=== PATIENT | male | born 1985 | race Caucasian/White ===

== ENCOUNTER 2020-08-23 08:09 | Inpatient (IN) | payer OTHER ==
[2020-08-23] VITALS (18 sets, daily range): BP systolic 104–134; BP diastolic 62–81
[~2020-08-23] VITALS: Ht 175.3 cm; Wt 56.2 kg
[~2020-08-23 08:09] MED LIST: KEFLEX500 MG PO; NOHOMEMEDICATIONS; ULTRAM 50MG TAB50 MG PO
--- NOTE | 2020-08-23 08:30 | NUR ---
PT IS LINE OF SIGHT PER DR. LOPEZ
[2020-08-23 08:45] LABS: ABSOLUTE MONOCYTES 0.3 thou/uL (0.0-1.2); ABSOLUTE NEUTROPHILS 4.7 thou/uL (1.6-8.1); BASOPHILS 0.4 %; EOSINOPHILS 0.2 %; HEMATOCRIT 35.1 % (42.0-52.0); HEMOGLOBIN 11.9 gm/dL (14.0-18.0); LYMPHOCYTES 16.6 %; MCH 32.6 pg (26.0-34.0); MCHC 33.8 g/dL (28.0-37.0); MCV 96.6 fL (80.0-100.0); MONOCYTES 5.3 %; MPV 8.4 fl. (7.2-11.1); NUCLEATED RBCS 0 /100WBC; PLATELET COUNT* 75 thou/uL (150-400); POLYS 77.5 %; RBC 3.63 mil/uL (4.50-6.00); RDW-CV 14.9 % (10.5-14.5); WBC 6.1 thou/uL (4.0-11.0)
[2020-08-23 08:52] LABS: CALCIUM 9.1 mg/dL (8.5-10.1); CREATININE 1.2 mg/dL (0.6-1.3)
[2020-08-23 08:52] LABS: URINE BILIRUBIN NEGATIVE (Negative); URINE BLOOD 1+ (Negative); URINE CLARITY CLEAR; URINE COLOR YELLOW; URINE GLUCOSE-RANDOM NEGATIVE (Negative); URINE KETONES NEGATIVE (Negative); URINE LEUKOCYTES-REFLEX NEGATIVE (Negative); URINE NITRITE-REFLEX NEGATIVE (Negative); URINE PROTEIN TRACE (Negative); URINE UROBILINOGEN 0.2 E.U./dl (0.2-1.0)
[2020-08-23 08:57] LABS: ALBUMIN 4.7 g/dL (3.4-5.0); TOTAL BILIRUBIN 2.1 mg/dL (<0.1-1.0); TOTAL PROTEIN 7.9 g/dL (6.4-8.2)
[2020-08-23 08:58] LABS: POTASSIUM 2.9 mmol/L (3.5-5.1)
[2020-08-23 09:02] LABS: AMP/METHAMP Negative (Negative); BARBITURATES Negative (Negative); BENZODIAZEPINES Negative (Negative); CASTS None Seen /LPF (None Seen); COCAINE Negative (Negative); CRYSTALS None Seen /LPF (None Seen); METHADONE Negative (Negative); MUCUS None Seen strn/LPF (None Seen); OPIATES Negative (Negative); PCP Negative (Negative); SQUAMOUS NONE SEEN /LPF (0-3); THC Negative (Negative); URINE RBC 0-2 Rare /HPF (0-2); URINE WBC-REFLEX None Seen /HPF (0-5)
[2020-08-23 09:14] LABS: ACETAMINOPHEN < 2 ug/mL (10-30); ALCOHOL < 10 mg/dL (<10); SALICYLATE < 2.8 mg/dL (2.8-20.0)
--- NOTE | 2020-08-23 09:31 | NUR ---
PT PROVIDED WITH BREAKFAST TRAY
--- NOTE | 2020-08-23 11:39 | NUR ---
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
--- NOTE | 2020-08-23 12:29 | NUR ---
PT GIVEN LUNCH.
--- NOTE | 2020-08-23 15:43 | NUR ---
PT TAKEN OFF LINE OT SIGHT DUE TO PT HAVING MORE AUDITORY AND VISUAL HALLUCINATIONS. PT IS NOW 1:1
--- NOTE | 2020-08-23 17:48 | NUR ---
PT PROVIDED WITH BREAKFAST TRAY
--- NOTE | 2020-08-23 17:48 | NUR ---
PT GIVEN DINNER TRAY
--- NOTE | 2020-08-23 18:56 | NUR ---
PT BECAME VERY AGGIATED AND DISORIENTED TO REALITY DESPITE MEDICATIONS GIVEN. UNABLE TO REDIRECT PT, PT UNSTEADY GAIT. PT PLACED IN RESTRAINTS FOR SAFETY.
--- NOTE | 2020-08-23 19:40 | NUR ---
BELONGINGS GIVEN TO MALLIKA TO GIVE TO DENISE HAMMONDS IN ICU
--- NOTE | 2020-08-23 22:22 | NUR ---
PATIENT TO UNIT AT 1945. UNABLE TO DO COMPLETE ADMISSION HISTORY DUE TO PATIENT BEING CONFUSED AND DISORIENTED X4. CIWA PROTOCOL INITIATED. PATIENT WAS TAKEN OUT OF 4 POINT RESTRAINTS AFTER ARRIVAL TO UNIT. NO LONGER EXHIBITING BEHAVIORS REQUIRING RESTRAINTS. 1:[address] VSS
[2020-08-24] VITALS (28 sets, daily range): BP systolic 58–114; BP diastolic 32–81
[2020-08-24 04:45] LABS: ABSOLUTE EOSINOPHILS 0.1 thou/uL (0.0-0.7); ABSOLUTE LYMPHOCYTES 1.1 thou/uL (0.8-5.3); ABSOLUTE MONOCYTES 0.3 thou/uL (0.0-1.2); ABSOLUTE NEUTROPHILS 1.8 thou/uL (1.6-8.1); BASOPHILS 0.3 %; EOSINOPHILS 1.7 %; HEMATOCRIT 28.2 % (42.0-52.0); LYMPHOCYTES 34.1 %; MCH 33.5 pg (26.0-34.0); MCHC 34.2 g/dL (28.0-37.0); MPV 8.9 fl. (7.2-11.1); NUCLEATED RBCS 0 /100WBC; PLATELET COUNT* 78 thou/uL (150-400); POLYS 54.9 %; RBC 2.88 mil/uL (4.50-6.00); WBC 3.3 thou/uL (4.0-11.0)
[2020-08-24 04:51] LABS: HEMOGLOBIN 9.6 gm/dL (14.0-18.0)
[2020-08-24 04:54] LABS: PROTIME 10.7 Seconds (9.20-11.50)
[2020-08-24 05:02] LABS: ALBUMIN 3.3 g/dL (3.4-5.0); CALCIUM 8.7 mg/dL (8.5-10.1); POTASSIUM 3.5 mmol/L (3.5-5.1); TOTAL BILIRUBIN 1.3 mg/dL (<0.1-1.0)
--- NOTE | 2020-08-24 10:29 | NUR ---
this chief underwriter assumed care of pt at 0700 pt remains 1:1 observation. pt frida is 15 see charting extremely agitated restless pulling at this climbing out of bed and making verbal threats that he will kill everyone, throw the chair and smash everything, he will freak out like he did last night, pt also states his mom is an oncology nurse who kills her pts, he believes we are [place] and is attemtping to speak sami, pt is having severe visual halluications seeing multiple people and things, his mom, a brett named wilbert, a little girl and dog stated he saw a grill outside the door with smoke coming out this chief underwriter paged dr siddiqui received an order for haldol when continue to redirect reorient and remain 1:1
--- NOTE | 2020-08-24 14:07 | NUR ---
pt is very combative and agitated verbally threatening tried puncging this fha underwriter in the face secruity called dr chen corona for restraint order and precedex gtt ciwa is 20 pt is disorienated confused severe hallucinations will continue to monitor closely
--- NOTE | 2020-08-24 14:59 | NUR ---
ICU ROUNDS: Pt admitted with ETOH w/drawl. Pt was combative towards nurse when CM went to assess, security called, CM to attempt to assess tomorrow. Med Assist following to determine if Pt is DELIA eligible.
--- NOTE | 2020-08-24 21:35 | NUR ---
PATIENT AWAKE AT 2100. PATIENT IS DISORIENTED AND CONFUSED. PATIENT PARANOID AND CAUTIOUS OF NURSING STAFF. STATES "YOU'RE THOSE MOTHER FUCKERS THAT KEEP CATCHING ME." REPEATEDELY ATTEMPTING TO GET OUT OF RESTRAINTS. PATIENT BRIEFLY CALMED DOWN TO TAKE MEDICATION AND EAT DINNER. REPEATEDLY ATTEMPTS TO PULL CATHETER OUT. CIWA SCORED AT 28. ATIVAN ADMINISTERED PER ORDERS.
[2020-08-25] VITALS (20 sets, daily range): BP systolic 75–112; BP diastolic 39–85
[2020-08-25 06:34] LABS: CALCIUM 8.7 mg/dL (8.5-10.1); CREATININE 0.7 mg/dL (0.6-1.3); MAGNESIUM 1.4 mg/dL (1.8-2.4); PHOSPHORUS* 1.3 mg/dL (2.5-4.9); POTASSIUM 3.1 mmol/L (3.5-5.1)
--- NOTE | 2020-08-25 07:22 | NUR ---
ASSESSMENTS CHARTED. PATIENT REMAINS CONFUSED AND DISORIENTED THIS SHIFT. PRECEDEX AT 0.3. REMAINS IN RESTRAINTS. PATIENT IS IMPULSIVE AND ATTEMPTS TO PULL CATHETER REPEATEDELY. PATIENT'S CARDIAC RHYTHM SHOWED SUBLTE ST ELEVATION CHANGES THIS AM. EKG PERFORMED CONFIRMING CHANGES. RESULTS CALLED TO DR. GONZALEZ AND ORDERS RECIEVED. PATIENT ASYMPTOMATIC, NO COMPLAINTS OF CHEST PAIN. ORDERS TO DRAW TROPONIN LEVELS AND MONITOR PATIENT.
--- NOTE | 2020-08-25 10:00 | NUR ---
Nutrition: screen for low BMI. No wt hx. Pt admit with ETOH withdrawl, severe hallucinations; pt was combative with staff requiring restraints. Nsg notes pt still confused and disoriented this am. Nsg noted pt did calm down enough to eat dinner last pm. Albumin mildly low at 3.3, Phos 1.3, K 3.1. vitamins, thiamine and other meds reviewed. Rec offer supplements/snacks for meal intake 50% or less. RD to reassess 08/30/20.
--- NOTE | 2020-08-25 10:02 | EKG ---
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 Chief: RICH : 1985 Requested By: Roberto Kathleen Order Number: [id number] Roxy MD: Rajiv Alvarenga Measurements Intervals [place] Rate: 54 P: 37 NC: 156 QRS: 77 QRSD: 107 T: 61 QT: 453 QTc: 430 Interpretive Statements Sinus bradycardia Probable left ventricular hypertrophy ST elev, probable normal early repol pattern No previous ECG available for comparison Electronically Signed On 08-25-2020 10:01:57 CANTEEN MANAGER by Rajiv Alvarenga [email or web address] <ELECTRONICALLY SIGNED> By: Rajiv Alvarenga MD, [facility] 08/25/20 1001 0318 0318 Rajiv Alvarenga MD, [facility] /EPI
--- NOTE | 2020-08-25 10:02 | EKG ---
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 : 1985 Requested By: Renu Dash Order Number: [id number] MD: Rajiv Alvarenga Measurements Intervals [place] Rate: 64 P: 45 NE: 168 QRS: 72 QRSD: 114 T: 48 QT: 456 QTc: 471 Interpretive Statements Sinus rhythm Borderline intraventricular conduction delay ST elev, probable normal early repol pattern Compared to ECG 08/25/2020 03:18:48 No significant changes Electronically Signed On 08-25-2020 10:02:14 UPHOLSTERY DEPARTMENT SUPERVISOR by Rajiv Alvarenga [email or web address] <ELECTRONICALLY SIGNED> By: Rajiv Alvarenga MD, FACC 08/25/20 1002 0428 0428 Rajiv Alvarenga MD, [facility] /EPI
--- NOTE | 2020-08-25 15:37 | NUR ---
ICU rounds: CIWA up. ICU status. Treating for etoh w/drawals vs. general psychosis. Off precedex
[2020-08-26 00:06] VITALS: BP 93/62
[2020-08-26 04:25] VITALS: BP 92/61
--- NOTE | 2020-08-26 05:26 | NUR ---
ASSUMED PATIENT CARE AT 1900. ASSESSMENTS COMPLETED CHARTED. CARDIAC MONITORING IN PLACE. HOURLY ROUNDING IN PLACE FOR PATIENT SAFETY. FALL PRECAUTIONS IN PLACE FOR PATIENT SAFETY. BED LOCKED AND IN LOWEST POSITION. BED ALARM ON. CLWR.
[2020-08-26 07:07] LABS: HEMATOCRIT 30.3 % (42.0-52.0); HEMOGLOBIN 10.4 gm/dL (14.0-18.0); MCH 33.7 pg (26.0-34.0); MCHC 34.4 g/dL (28.0-37.0); MCV 97.9 fL (80.0-100.0); MPV 8.2 fl. (7.2-11.1); RBC 3.09 mil/uL (4.50-6.00); RDW-CV 14.8 % (10.5-14.5); WBC 4.2 thou/uL (4.0-11.0)
[2020-08-26 07:20] LABS: ALBUMIN 3.4 g/dL (3.4-5.0); CALCIUM 9.4 mg/dL (8.5-10.1); CREATININE 0.9 mg/dL (0.6-1.3); MAGNESIUM 1.2 mg/dL (1.8-2.4); PHOSPHORUS* 2.5 mg/dL (2.5-4.9); POTASSIUM 4.3 mmol/L (3.5-5.1); TOTAL BILIRUBIN 0.6 mg/dL (<0.1-1.0); TOTAL PROTEIN 6.5 g/dL (6.4-8.2)
[2020-08-26 09:36] VITALS: BP 100/60
[2020-08-26 09:53] VITALS: BP 92/61
--- NOTE | 2020-08-26 13:03 | NUR ---
PATIENT REMAINS A&O X 4, PLEASANT AND COOPERATIVE WITH CARES. DENIES PAIN OR SHORTNESS OF AIR. CIWA REMAINS LOW WITH LAST SCORE OF A 4. GOOD APPITITE. MOTHER AT BEDSIDE THIS AM. NO COMPLAINTS AT THIS TIME. MAY DISCHARGE HOME AWAITING CONSULT FROM PSYCH. NO FUTHER CONCERNS AT THIS TIME. WILL CONTINUE TO MONITOR AND CARE PER PLAN OF CARE.
--- NOTE | 2020-08-26 14:05 | NUR ---
CM SPOKE TO THE PT TO DISCUSS D/C PLANNING AND TO PROVIDE ETOH RESOURCES. CM PROVIDED ETOH RESOURCES AND CONTACT INFO/PAMPHLET FOR [facility]. PT ACCEPTS INFO AND PLAN TO CONTACT [facility] AT D/C. CM WILL REMAIN AVAILABLE TO ASSIST AND FOLLOW NEEDED.
[2020-08-27 10:49] VITALS: BP 92/61
== END 2020-08-26 15:20 | disposition home or self-care (01) | DRG 896 ==
LOC: M.ERS 08:09 → M.TBA-ER 18:49 → M.ICU 19:41
PROVIDERS: Family Medicine; Internal Medicine; ADMIT Internal Medicine; ATTEND Internal Medicine
DX: F10.231 Alcohol dependence with withdrawal delirium (principal); G92 Toxic encephalopathy; Y90.9 Presence of alcohol in blood, level not specified; E87.6 Hypokalemia; F29 Unspecified psychosis not due to a substance or known physiological condition; D64.9 Anemia, unspecified; K70.10 Alcoholic hepatitis without ascites; E86.0 Dehydration; Z20.822 Contact with and (suspected) exposure to COVID-19; Z79.899 Other long term (current) drug therapy

== ENCOUNTER 2021-04-12 22:12 | Inpatient (IN) | payer OTHER ==
[~2021-04-12] VITALS: Ht 177.8 cm; Wt 57.9 kg
[2021-04-12 22:26] VITALS: BP 121/86
[2021-04-12 22:37] LABS: ABSOLUTE LYMPHOCYTES 1.4 thou/uL (0.8-5.3); ABSOLUTE MONOCYTES 0.6 thou/uL (0.0-1.2); ABSOLUTE NEUTROPHILS 4.6 thou/uL (1.6-8.1); BASOPHILS 0.3 %; EOSINOPHILS 0.1 %; HEMATOCRIT 38.5 % (42.0-52.0); HEMOGLOBIN 13.4 gm/dL (14.0-18.0); LYMPHOCYTES 20.6 %; MCH 32.7 pg (26.0-34.0); MCHC 34.7 g/dL (28.0-37.0); MCV 94.1 fL (80.0-100.0); MONOCYTES 9.4 %; MPV 8.2 fl. (7.2-11.1); NUCLEATED RBCS 0 /100WBC; PLATELET COUNT* 105 thou/uL (150-400); POLYS 69.6 %; RBC 4.09 mil/uL (4.50-6.00); RDW-CV 14.8 % (10.5-14.5); WBC 6.6 thou/uL (4.0-11.0)
[2021-04-12 22:44] LABS: CALCIUM 10.8 mg/dL (8.5-10.1); CREATININE 2.4 mg/dL (0.6-1.3)
[2021-04-12 22:45] LABS: POTASSIUM 2.7 mmol/L (3.5-5.1)
[2021-04-12 22:48] LABS: ALBUMIN 5.2 g/dL (3.4-5.0); MAGNESIUM 2.1 mg/dL (1.8-2.4); TOTAL BILIRUBIN 1.4 mg/dL (<0.1-1.0); TOTAL PROTEIN 8.3 g/dL (6.4-8.2)
[2021-04-12 22:52] LABS: ACETAMINOPHEN < 2 ug/mL (10-30); SALICYLATE < 2.8 mg/dL (2.8-20.0)
[2021-04-13] VITALS (17 sets, daily range): BP systolic 96–146; BP diastolic 61–103
[2021-04-14] VITALS (21 sets, daily range): BP systolic 104–158; BP diastolic 40–90
[2021-04-14 04:29] LABS: HEMATOCRIT 30.2 % (42.0-52.0); MCH 32.4 pg (26.0-34.0); MCHC 33.8 g/dL (28.0-37.0); MCV 95.9 fL (80.0-100.0); MPV 7.1 fl. (7.2-11.1); RBC 3.15 mil/uL (4.50-6.00); RDW-CV 14.7 % (10.5-14.5); WBC 2.3 thou/uL (4.0-11.0)
[2021-04-14 04:41] LABS: POTASSIUM 3.2 mmol/L (3.5-5.1)
[2021-04-14 04:44] LABS: CALCIUM 8.6 mg/dL (8.5-10.1); CREATININE 0.8 mg/dL (0.6-1.3)
[2021-04-14 04:48] LABS: HEMOGLOBIN 10.2 gm/dL (14.0-18.0)
--- NOTE | 2021-04-14 12:47 | EKG ---
[place] [address] ELECTROCARDIOGRAM REPORT Name: HELEN JUAREZ Room: [address] ADM IN M.R.#: [id number] Admission: 04/12/21 Attend Phys: Renu Dash, Discharge: Date of : 81 Date of Service: 04/12/21 2301 Report #: [id number] THIS REPORT FOR: //name// [facility] ED Test Date: 2021-04-12 Test Time: 23:01:53 Pat Name: HELEN GILLILANDEMMA Department: Room: [address] Gender: M Is Manager: TB : 1985 Requested By: Luzma Lopez Order Number: [id number] Roxy MD: Anand Smith Measurements Intervals [place] Rate: 97 P: 61 VA: 142 QRS: 73 QRSD: 95 T: 72 QT: 469 QTc: 596 Interpretive Statements Sinus rhythm Prolonged QT interval Baseline wander in lead(s) II Compared to ECG 08/25/2020 04:28:01 Prolonged QT interval now present ST (T wave) deviation no longer present Electronically Signed On 04-14-2021 12:46:35 CDT by Anand Smith [email or web address] <ELECTRONICALLY SIGNED> By: Anand Smith MD, FACC 04/14/21 1246 00 00 Anand Smith MD, FACC /EPI
[2021-04-15 04:05] VITALS: BP 126/74
[2021-04-15 04:24] LABS: HEMATOCRIT 32.5 % (42.0-52.0); HEMOGLOBIN 11.2 gm/dL (14.0-18.0); MCH 32.9 pg (26.0-34.0); MCHC 34.4 g/dL (28.0-37.0); MCV 95.8 fL (80.0-100.0); MPV 7.5 fl. (7.2-11.1); RBC 3.39 mil/uL (4.50-6.00); RDW-CV 14.3 % (10.5-14.5); WBC 4.1 thou/uL (4.0-11.0)
[2021-04-15 04:27] LABS: CALCIUM 8.9 mg/dL (8.5-10.1); POTASSIUM 3.1 mmol/L (3.5-5.1)
[2021-04-15 08:00] VITALS: BP 101/62
[2021-04-15 12:00] VITALS: BP 103/70
[2021-04-15 17:57] VITALS: BP 110/73
[2021-04-15 19:57] VITALS: BP 119/76
[2021-04-16 07:27] VITALS: BP 121/81
[2021-04-16 12:00] VITALS: BP 113/67
[2021-04-16 16:00] VITALS: BP 116/49
[2021-04-16 21:54] VITALS: BP 117/80
[2021-04-17 08:00] VITALS: BP 122/77
[2021-04-17 12:00] VITALS: BP 116/69
[2021-04-17 16:00] VITALS: BP 117/84
[2021-04-17 17:42] VITALS: BP 117/84
== END 2021-04-17 18:05 | disposition home or self-care (01) | DRG 896 ==
LOC: M.ERS 22:12 → M.TBA-ER 23:05 → M.ICU 04-13 11:19 → M.2W 04-14 18:37
PROVIDERS: Emergency Medicine; Family Medicine; ADMIT Internal Medicine; ATTEND Internal Medicine
DX: F10.239 Alcohol dependence with withdrawal, unspecified (principal); N17.0 Acute kidney failure with tubular necrosis; R45.851 Suicidal ideations; E87.6 Hypokalemia; Z20.822 Contact with and (suspected) exposure to COVID-19; F32.A Depression, unspecified; R74.01 Elevation of levels of liver transaminase levels